=== PATIENT | female | born 1955 | race American Indian/Alaskan Native ===

== ENCOUNTER 2017-03-28 18:20 | Emergency (ER) | payer SELFPAY ==
[2017-03-28 18:30] VITALS: BP 175/85
--- NOTE | 2017-03-28 20:43 | Emergency Department Report ---
- General Chief Complaint: Upper Respiratory Infection Stated Complaint: COUGH Time Seen by Provider: 03/28/17 20:08 Source: patient Mode of arrival: Ambulatory Limitations: No Limitations - History of Present Illness Complaint: cough -: Gradual, week(s) Severity: moderate Consistency: constant Improves With: nothing Worsens With: deep breaths Context: sick contacts Associated Symptoms: denies other symptoms Treatments Prior to Arrival: other (OTC cough medicine) - Related Data Previous Rx's Medication Instructions Recorded Last Taken Type Cephalexin [Keflex] 500 mg PO Q6HR 7 Days #30 capsule 03/28/17 Unknown Rx Prednisone 50 mg PO DAILY #7 tablet 03/28/17 Unknown Rx Allergies Allergy/AdvReac Type Severity Reaction Status Date / Time Sulfa (Sulfonamide Allergy Itching Verified 03/28/17 18:30 Antibiotics) ED Review of Systems ROS: Stated complaint: COUGH Other details as noted in HPI Constitutional: denies: chills, fever Eyes: denies: eye pain, eye discharge, vision change ENT: denies: ear pain, throat pain Respiratory: see HPI, cough. denies: shortness of breath, wheezing Cardiovascular: denies: chest pain, palpitations Endocrine: no symptoms reported Gastrointestinal: denies: abdominal pain, nausea, diarrhea Genitourinary: denies: urgency, dysuria, discharge Musculoskeletal: denies: back pain, joint swelling, arthralgia Skin: denies: rash, lesions Neurological: denies: headache, weakness, paresthesias Psychiatric: denies: anxiety, depression Hematological/Lymphatic: denies: easy bleeding, easy bruising ED Past Medical Hx - Past Medical History Previous Medical History?: No - Surgical History Past Surgical History?: No - Social History Smoking Status: Never Smoker Substance Use Type: None - Medications Home Medications: Home Medications Medication Instructions Recorded Confirmed Last Taken Type Cephalexin [Keflex] 500 mg PO Q6HR 7 Days #30 capsule 03/28/17 Unknown Rx Prednisone 50 mg PO DAILY #7 tablet 03/28/17 Unknown Rx ED Physical Exam - General Limitations: No Limitations General appearance: alert, in no apparent distress - Head Head exam: Present: atraumatic, normocephalic - Eye Eye exam: Present: normal appearance - ENT ENT exam: Present: mucous membranes moist - Neck Neck exam: Present: normal inspection - Respiratory Respiratory exam: Present: normal lung sounds bilaterally, respiratory distress (actively coughing), wheezes - Cardiovascular Cardiovascular Exam: Present: regular rate, normal rhythm. Absent: systolic murmur, diastolic murmur, rubs, gallop - GI/Abdominal GI/Abdominal exam: Present: soft, normal bowel sounds - Extremities Exam Extremities exam: Present: normal inspection - Back Exam Back exam: Present: normal inspection - Neurological Exam Neurological exam: Present: alert, oriented X3 - Psychiatric Psychiatric exam: Present: normal affect, normal mood - Skin Skin exam: Present: warm, dry, intact, normal color. Absent: rash ED Course Vital Signs 03/28/17 18:26 Temperature 98.6 F Pulse Rate 94 H Blood Pressure 175/85 O2 Sat by Pulse 98 Oximetry Critical care attestation.: If time is entered above; I have spent that time in minutes in the direct care of this critically ill patient, excluding procedure time. ED Disposition Clinical Impression: Acute bronchitis due to infection Disposition: DC-01 TO HOME OR SELFCARE Is pt being admited?: No Does the pt Need Aspirin: No Condition: Good Instructions: Acute Bronchitis (ED) Prescriptions: Cephalexin [Keflex] 500 mg PO Q6HR 7 Days #30 capsule Prednisone 50 mg PO DAILY #7 tablet Referrals: PRIMARY CARE, [Primary Care Provider] - 3-5 Days Time of Disposition: 20:50
--- NOTE | 2017-03-29 08:48 | XRay Report ---
XRAY CHEST TWO VIEWS: 03/28/17 18:20:00 CLINICAL: Cough. COMPARISON: 01/26/11 FINDINGS: Normal heart and pulmonary vasculature. Bibasal streaky lung opacities, greater in the left lower lobe than the right. These are new compared to the prior exam. The upper lung helm are clear. No pleural effusion.Sclerotic changes in the right humeral head are apparently new compared to the prior exam. Sclerotic changes in the right scapula are unchanged. IMPRESSION: Bibasal subsegmental atelectasis versus scarring.Sclerotic changes in the right scapula and right humerus are of uncertain etiology but metastatic disease is a consideration.
== END 2017-03-28 20:55 | disposition home or self-care (01) ==
LOC: ED 18:20
DX: J06.9 Acute upper respiratory infection, unspecified (principal)
CPT/HCPCS: 71020; 99283